=== PATIENT | female | born 1970 | race Caucasian/White ===

== ENCOUNTER → 2024-02-08 | Outpatient (CLI) | payer MEDICARE, BC, SELFPAY ==
--- NOTE | 2024-02-08 15:58 | XR_ITS ---
Examination: Ultrasound soft tissue right neck TECHNIQUE: Multiple high-resolution grayscale sonographic images soft tissue neck Exam date and time: February 08, 2024 1604 hours INDICATIONS: Right neck lump noticed beginning 6 months ago FINDINGS: Right submental lymph node 15 x 5 x 10 mm IMPRESSION: Right submental lymph node 15 x 5 x 10 mm No solid thyroid nodules
== END | disposition home or self-care (01) ==
PROVIDERS: PCP Nurse Practitioner Family; Referring Provider Nurse Practitioner Family; Visit Provider Nurse Practitioner Family
DX: E04.1 Nontoxic single thyroid nodule (principal)
CPT/HCPCS: 76536